=== PATIENT | female | born 1955 | race American Indian/Alaskan Native ===

== ENCOUNTER → 2017-07-09 | Outpatient (CLI) | payer MEDICARE, OTHER ==
--- NOTE | 2017-07-24 14:01 | XRay Report ---
CERVICAL SPINE SERIES THREE VIEWS: 07/09/17 01:00:00 CLINICAL: Cervical radicular pain. COMPARISON: 10/09/12 FINDINGS: The spine is hyperextended at C2-3. Normal vertebral body alignment through T1. No fracture. Moderate degenerative disc disease at C6-7 with disc space narrowing and a large anterior osteophyte. The rest of the disc spaces are preserved. A large anterior osteophyte with a normal disc space at C4-5. The odontoid and C1 are intact. The facet joints are normal. Normal soft tissues and airway. IMPRESSION: Moderate degenerative disc disease at C6-7 and spondylosis at C4-5.
== END ==
LOC: SPVIMAG 01:00
PROVIDERS: ATTEND Internal Medicine
DX: M50.323 Other cervical disc degeneration at C6-C7 level (principal); M47.892 Other spondylosis, cervical region; M54.12 Radiculopathy, cervical region
CPT/HCPCS: 72040

== ENCOUNTER 2019-02-03 11:32 | Outpatient (CLI) | payer MEDICARE, OTHER ==
--- NOTE | 2019-02-03 11:58 | XRay Report ---
LEFT SHOULDER, 3 VIEWS INDICATION: ACUTE LEFT SHOULDER PAIN. COMPARISON: None. IMPRESSION: Borderline to mild osteopenia is suspected. No acute osseous injury is appreciated. Mil d degenerative changes are noted at the AC joint. The soft tissues are unremarkable. Signer Name: Geronimo Elias Jr, MD Signed: 02/03/2019 11:53 AM Workstation Name: [id number]
== END 2019-02-03 11:33 | disposition home or self-care (01) ==
LOC: SPVIMAG 11:32
PROVIDERS: ATTEND Internal Medicine
DX: M25.512 Pain in left shoulder (principal); M47.814 Spondylosis without myelopathy or radiculopathy, thoracic region

== ENCOUNTER 2019-03-18 09:27 | Outpatient (CLI) | payer MEDICARE, OTHER ==
--- NOTE | 2019-03-19 13:09 | Mammography Report ---
DIGITAL SCREENING MAMMOGRAM WITH CAD, 03/18/2019 INDICATION: Routine screening mammography. TECHNIQUE: Digital bilateral 2D mammography was obtained in the craniocaudal and mediolateral obliq ue projections. This examination was interpreted with the benefit of Computer-Aided Detection analysi s. COMPARISON: 02/25/2018 and 04/12/2015 FINDINGS: Breast Density: The breasts are heterogeneously dense, which may obscure small masses. There is no evidence of dominant mass, suspicious calcifications or architectural distortion in eithe r breast. Bilateral benign calcifications, some of which are arterial. IMPRESSION: No mammographic evidence of malignancy. Follow up recommendation: Routine yearly BI-RADS Category 2: Benign. A "normal" or negative report should not discourage follow up or biopsy of a clinically significant f inding. A written summary of these findings will be mailed to the patient. The patient will be entered into a mammography reporting system which will generate a reminder letter for the patient's next appointmen t at the appropriate interval. The [employer] recommends yearly mammograms starting at age 40 and continuing as l lana as a woman is in good health. Breast MRI is recommended for women with an approximate 20-25% or greater lifetime risk of breast cancer, including women with a strong family history of breast or ova dorinda cancer or who have been treated for Hodgkin's disease. Signer Name: Chad Johnson MD Signed: 03/19/2019 1:04 PM Workstation Name: [id number]
== END 2019-03-18 09:28 | disposition home or self-care (01) ==
LOC: SPVWC 09:27
PROVIDERS: ATTEND Internal Medicine
DX: Z12.31 Encounter for screening mammogram for malignant neoplasm of breast (principal)
CPT/HCPCS: 77067

== ENCOUNTER 2019-04-15 08:02 | Outpatient (CLI) | payer MEDICARE, OTHER ==
--- NOTE | 2019-04-15 10:22 | Mammography Report ---
BONE DEXA CLINICAL: Postmenopausal. TECHNIQUE: 2 site bone DEXA performed on an Hologic scanner. FINDINGS: The average BMD of the lumbar spine L1-L4 is 1.077g/cm squared with a T score of +0.3 and a Z score o f +1.8. The average total BMD of the left hip is 0.974 g/cm squared with a T score of +0.3and a Z score of +1 .3. IMPRESSION: 1. WHO classification: Normal with average fracture risk based on spine measurements. 2. WHO classification Normal with average fracture risk based on left hip measurements. RECOMMENDATION: Clinical correlation and routine screening. Definitions: BMD equal bone mineral density T score = BMD related to peak bone mass of young adult ([place] expressed an standard deviation) Z score = age-matched BMD expressed in SD World health organization (WHO) diagnostic criteria Normal T score greater than equal to 1 standard deviation Osteopenia T score between -1 and -2.4 standard deviation Osteoporosis T score -2.5 standard deviation or below. Note: BMD is not the only risk factor for fracture; also consider factors such as the patient's age, risk of falling, previous osteoporotic fracture, family history of osteoporotic fractures, current sm oker and low body weight. Z scores are not calculated if greater than 80 years of age. Signer Name: Chad Johnson MD Signed: 04/15/2019 10:17 AM Workstation Name: [id number]
== END 2019-04-15 08:03 | disposition home or self-care (01) ==
LOC: SPVWC 08:02
PROVIDERS: ATTEND Internal Medicine
DX: M81.0 Age-related osteoporosis without current pathological fracture (principal); Z78.0 Asymptomatic menopausal state
CPT/HCPCS: 77080